=== PATIENT | female | born 2000 | race Two or more races ===

== ENCOUNTER 2023-11-28 16:33 | Emergency (ER) | payer OTHER ==
[2023-11-28 16:40] VITALS: BP 126/61; PULSE 61; RESP 20; TEMP 98.2; BMI 32.2
[2023-11-28] MEDS ORDERED: MAG HYDROX/AL HYDROX/SIMETH 30 ML UNIT-DOSE CUP PO ONE (18:05)
[2023-11-28] MEDS ORDERED: FAMOTIDINE 20 MG/50 ML IVPB 20 MG/50 ML MG IVPB ONE ×2 (18:05→18:46)
[2023-11-28] MEDS ORDERED: MAG HYDROX/AL HYDROX/SIMETH 30 ML UNIT-DOSE CUP ONE (18:46)
[2023-11-28 18:51] LABS: BASO % 0.7 % (0-2.0); EOS % 2.7 % (0-4.5); HEMATOCRIT 44.2 % (32.4-45.2); HEMOGLOBIN 15.1 GM/dL (10.7-15.3); LYMPH % 35.1 % (8-40); MCH 30.7 pg (25.7-33.7); MCHC 34.1 g/dl (32.0-36.0); MEAN CELL VOLUME 89.8 fl (80-96); MEAN PLT VOLUME 9.2 fl (7.5-11.1); MONO % 14.3 % (3.8-10.2); NEUT % 47.2 % (42.8-82.8); PLATELET COUNT 249 10^3/uL (134-434); RBC 4.92 M/mm3 (3.60-5.2); RDW 13.8 % (11.6-15.6); WHITE BLOOD COUNT 4.6 K/mm3 (4.0-10.0)
[2023-11-28 18:52] LABS: URINE APPEARANCE CLEAR; URINE BILIRUBIN NEGATIVE (NEGATIVE); URINE COLOR YELLOW; URINE GLUCOSE (UA) NEGATIVE (NEGATIVE); URINE KETONE TRACE (NEGATIVE); URINE LEUK ESTERASE NEGATIVE (NEGATIVE); URINE NITRITE NEGATIVE (NEGATIVE); URINE PROTEIN TRACE (NEGATIVE)
[2023-11-28 18:55] LABS: HCG,QUALITATIVE URINE Negative
[2023-11-28 19:16] LABS: POTASSIUM 5.4 mmol/L (3.5-5.1)
[2023-11-28 19:19] LABS: ALBUMIN 4.1 g/dl (3.4-5.0); BLOOD UREA NITROGEN 12.8 mg/dL (7-18)
[2023-11-28 19:22] LABS: CREATININE 0.9 mg/dL (0.55-1.3)
[2023-11-28 19:23] LABS: BILIRUBIN,TOTAL 1.5 mg/dL (0.2-1)
[2023-11-28 19:51] LABS: CALCIUM 9.2 mg/dL (8.5-10.1)
== END 2023-11-28 20:26 | disposition home or self-care (01) ==
LOC: JER 16:33
PROC: 3E033GC Introduction of Other Therapeutic Substance into Peripheral Vein, Percutaneous Approach (ICD-10-PCS; principal; 2023-11-28)
DX: R07.89 Other chest pain (principal); R11.2 Nausea with vomiting, unspecified; R10.9 Unspecified abdominal pain
CPT/HCPCS: 36415; 71046-TC-FY; 80053; 81003; 83690; 84484; 84703; 85025; 87086; 87186; 93005; 93010; 99284-25

== ENCOUNTER 2024-01-21 11:41 | Emergency (ER) | payer OTHER ==
[2024-01-21 11:58] VITALS: BP 106/60; PULSE 72; RESP 18; TEMP 98.4; BMI 31.7
[2024-01-21] MEDS ORDERED: ACETAMINOPHEN INJECTION 100 ML IVPB ONE (13:43)
[2024-01-21] MEDS ORDERED: ONDANSETRON 4 MG/2 ML VIAL ONE (13:43)
[2024-01-21] MEDS ORDERED: FAMOTIDINE 20 MG/50 ML IVPB 20 MG/50 ML MG IVPB ONE (13:44)
[2024-01-21 13:47] LABS: BASO % 0.5 % (0-2.0); EOS % 2.3 % (0-4.5); HEMATOCRIT 41.6 % (32.4-45.2); HEMOGLOBIN 14.2 GM/dL (10.7-15.3); LYMPH % 25.1 % (8-40); MCH 31.1 pg (25.7-33.7); MCHC 34.2 g/dl (32.0-36.0); MEAN PLT VOLUME 8.6 fl (7.5-11.1); NEUT % 63.1 % (42.8-82.8); PLATELET COUNT 201 10^3/uL (134-434); RBC 4.57 M/mm3 (3.60-5.2); RDW 14.1 % (11.6-15.6); WHITE BLOOD COUNT 4.5 K/mm3 (4.0-10.0)
[2024-01-21] MEDS: ACETAMINOPHEN 1000 MG/100 ML BAG IVPB ONE (13:55)
[2024-01-21] MEDS: LACTATED RINGERS SOLUTION 1000 ML INFUS.BAG IV ONE (13:55)
[2024-01-21] MEDS: ONDANSETRON 4 MG/2 ML VIAL IVPUSH ONE (13:56)
[2024-01-21] MEDS: FAMOTIDINE 20 MG/50 ML IVPB 20 MG/50 ML MG IVPB ONE (13:56)
[2024-01-21 13:57] LABS: CHLORIDE 107 mmol/L (98-107); SODIUM 140 mmol/L (136-145)
[2024-01-21 14:00] LABS: ALBUMIN 4.1 g/dl (3.4-5.0); CALCIUM 9.5 mg/dL (8.5-10.1)
[2024-01-21 14:01] LABS: BLOOD UREA NITROGEN 7.4 mg/dL (7-18); CO2 28 mmol/L (21-32); GLUCOSE,RANDOM 79 mg/dL (74-106); MAGNESIUM 2.2 mg/dL (1.8-2.4)
[2024-01-21 14:03] LABS: CREATININE 0.7 mg/dL (0.55-1.3); SGPT/ALT 31 U/L (13-61)
[2024-01-21 14:03] LABS: PH,URINE 7.5 (5.0-8.0); URINE APPEARANCE CLEAR; URINE BILIRUBIN NEGATIVE (NEGATIVE); URINE COLOR YELLOW; URINE GLUCOSE (UA) NEGATIVE (NEGATIVE); URINE KETONE NEGATIVE (NEGATIVE); URINE LEUK ESTERASE NEGATIVE (NEGATIVE); URINE NITRITE NEGATIVE (NEGATIVE); URINE PROTEIN NEGATIVE (NEGATIVE); URINE UROBILINOGEN 0.2 mg/dL (0.2-1.0)
[2024-01-21 14:04] LABS: SGOT/AST 28 U/L (15-37)
[2024-01-21 14:05] LABS: BILIRUBIN,TOTAL 1.4 mg/dL (0.2-1)
[2024-01-21 14:06] LABS: ALK PHOS 87 U/L (45-117)
[2024-01-21 14:12] LABS: ANION GAP 5 mmol/L (4-13); POTASSIUM 6.1 mmol/L (3.5-5.1)
[2024-01-21 14:19] LABS: HCG,QUALITATIVE URINE Negative
== END 2024-01-21 14:00 | disposition left against medical advice (07) ==
LOC: JER 11:41
PROC: 3E033GC Introduction of Other Therapeutic Substance into Peripheral Vein, Percutaneous Approach (ICD-10-PCS; principal; 2024-01-21)
PROC: 3E033GC Introduction of Other Therapeutic Substance into Peripheral Vein, Percutaneous Approach (ICD-10-PCS; 2024-01-21)
PROC: 3E033GC Introduction of Other Therapeutic Substance into Peripheral Vein, Percutaneous Approach (ICD-10-PCS; 2024-01-21)
DX: R10.816 Epigastric abdominal tenderness (principal); R11.2 Nausea with vomiting, unspecified; R07.9 Chest pain, unspecified; R19.7 Diarrhea, unspecified; Z20.822 Contact with and (suspected) exposure to COVID-19
CPT/HCPCS: 0241U-QW; 36415; 71045-TC-FY; 80053; 81003; 83690; 83735; 84484; 84703; 85025; 87086; 93005; 93010; 99285-25; J0131

== ENCOUNTER 2024-02-02 17:28 | Emergency (ER) | payer OTHER ==
[2024-02-02 17:47] VITALS: BP 105/61; PULSE 77; RESP 20; TEMP 97.5; BMI 30.2
[2024-02-02] MEDS ORDERED: KETOROLAC TROMETHAMINE 30 MG/1 ML VIAL ONE (18:42)
[2024-02-02] MEDS: KETOROLAC TROMETHAMINE 30 MG/1 ML VIAL IM ONE (18:45)
[2024-02-02] MEDS ORDERED: CYCLOBENZAPRINE HCL 10 MG TABLET (FP) ONE (18:59)
[2024-02-02] MEDS: CYCLOBENZAPRINE HCL 10 MG TABLET (FP) PO ONE (19:01)
== END 2024-02-02 19:38 | disposition home or self-care (01) ==
LOC: JER 17:28 → JERFT 17:28
PROC: 3E0233Z Introduction of Anti-inflammatory into Muscle, Percutaneous Approach (ICD-10-PCS; principal; 2024-02-02)
DX: M54.41 Lumbago with sciatica, right side (principal); M54.42 Lumbago with sciatica, left side
CPT/HCPCS: 72100-TC-FY; 99284-25

== ENCOUNTER 2024-03-28 17:56 | Emergency (ER) | payer OTHER ==
[2024-03-28 18:04] VITALS: BP 99/58; PULSE 80; RESP 18; TEMP 98; BMI 30.5
== END 2024-03-28 19:01 | disposition home or self-care (01) ==
LOC: JERFT 17:56
DX: S69.91XA Unspecified injury of right wrist, hand and finger(s), initial encounter (principal); M79.641 Pain in right hand; W22.01XA Walked into wall, initial encounter
CPT/HCPCS: 73130-TC-RT-FY; 99283-25